=== PATIENT | female | born 1950 | race Two or more races ===

== ENCOUNTER 2023-03-24 16:21 | Inpatient (IN) | payer MEDICAID ==
[~2023-03-24] VITALS: Ht 147.3 cm; Wt 62.8 kg
[2023-03-24 04:48] VITALS: BP 139/54; PULSE 79; RESP 18; TEMP 98; O2SAT 98
[2023-03-24 18:45] LABS: Mean Corpuscular Volume 106.3 fL (80.0-100.0)
[2023-03-24 18:47] LABS: Hematocrit 13.6 % (36.0-46.0); Mean Corpuscular Hgb Conc. 34.8 g/dL (32.0-36.0); Red Blood Cells 1.28 10^6/uL (4.0-5.20); Red Cell Distribution Width 19.3 % (11.8-14.3); White Blood Cell 2.8 10^3/uL (4.4-10.8)
[2023-03-24 18:54] LABS: Hemoglobin 4.7 g/dL (12.2-16.2)
[2023-03-24 18:55] LABS: Alanine Aminotransferase 26 U/L (7-40); Alkaline Phosphatase 87 U/L (46-116); Anion Gap 13 (5-15); Aspartate Aminotransferase 18 U/L (13-40); BUN/Creatinine Ratio 26.2 (10.0-20.0); Band Neutrophils % (manual) 0; Basophils % (manual) 0 (0.0-2.0); Blood Urea Nitrogen 22 mg/dL (9-23); Calcium 9.7 mg/dL (8.5-10.1); Carbon Dioxide 22 mmol/L (20-30); Chloride 105 mmol/L (98-107); Eosinophils % (manual) 0 (0-7); Glucose 117 mg/dL (74-106); Myelocytes % 0; Promyelocytes % 0; Reactive Lymphocytes 0; Sodium 140 mmol/L (136-145)
[2023-03-24 18:56] LABS: Albumin 4.2 g/dL (3.2-4.8); Bilirubin, Total 0.7 mg/dL (0.2-1.0); Total Protein 7.4 g/dL (5.7-8.2)
[2023-03-24 19:26] LABS: Blast Cells 3; Lymphocytes % (manual) 59 (10.0-50.0); Macrocytosis Moderate; Metamyelocytes % 1; Monocytes % (manual) 3 (0-12); Platelet Estimate Decreased
[2023-03-24 19:48] LABS: INR 1.08 (0.9-1.15); Partial Thromboplastin Time 23.7 SEC (24.5-34.5); Prothrombin Time 11.3 sec (9.3-11.8)
[2023-03-24] MEDS ORDERED: ACETAMINOPHEN 325 MG TAB PO PRN (21:00)
[2023-03-24] MEDS ORDERED: ONDANSETRON HCL 4 MG/2 ML VIAL IV PRN (21:00)
[2023-03-24] MEDS ORDERED: TEMAZEPAM 15 MG CAP PO PRN (21:00)
[2023-03-25] VITALS (22 sets, daily range): BP systolic 122–160; BP diastolic 47–68; PULSE 70–88; RESP 13–20; TEMP 97.9–99.1; O2SAT 97–100
[2023-03-25] MEDS ORDERED: LOSA100T58 PO (01:49)
[2023-03-25] MEDS ORDERED: CHOL20007 OR (01:49)
[2023-03-25] MEDS ORDERED: METF-371 PO (01:49)
[2023-03-25] MEDS ORDERED: GLIP5TAB12 PO (01:49)
[2023-03-25] MEDS ORDERED: DOCU-94 PO (01:49)
[2023-03-25] MEDS ORDERED: hydrALAZINE HCL 20 MG/ML VL IV ONE (02:00)
[2023-03-25 06:19] LABS: Alanine Aminotransferase 22 U/L (7-40); Alkaline Phosphatase 80 U/L (46-116); Anion Gap 13 (5-15); Aspartate Aminotransferase 13 U/L (13-40); BUN/Creatinine Ratio 23.5 (10.0-20.0); Blood Urea Nitrogen 20 mg/dL (9-23); Calcium 9.2 mg/dL (8.7-10.4); Carbon Dioxide 19 mmol/L (20-30); Chloride 107 mmol/L (98-107); Glucose 186 mg/dL (74-106); Potassium 3.6 mmol/L (3.5-5.1); Sodium 139 mmol/L (136-145)
[2023-03-25 06:20] LABS: Albumin 3.9 g/dL (3.2-4.8); Bilirubin, Total 0.9 mg/dL (0.2-1.0); Total Protein 6.9 g/dL (5.7-8.2)
[2023-03-25] MEDS ORDERED: DEXTROSE (50%) 50ML SYRG IV PRN (06:45)
[2023-03-25] MEDS: InsuLIN REG 1unit/0.01ml Soln (100units/ml) SC SCH ×4 (07:00→22:07)
[2023-03-25] MEDS: ACCU-CHEK COMFORT CURVE STRIP VI SCH ×4 (07:02→22:07)
[2023-03-25 08:47] LABS: Hematocrit 16.3 % (36.0-46.0); Mean Corpuscular Hemoglobin 34.8 pg (28.0-32.0); Mean Corpuscular Hgb Conc. 34.4 g/dL (32.0-36.0); Mean Corpuscular Volume 101.2 fL (80.0-100.0); Red Blood Cells 1.61 10^6/uL (4.0-5.20); Red Cell Distribution Width 19.5 % (11.8-14.3); White Blood Cell 2.2 10^3/uL (4.4-10.8)
[2023-03-25 08:54] LABS: Basophils % (manual) 0 (0.0-2.0); Blast Cells 0; Hemoglobin 5.6 g/dL (12.2-16.2); Metamyelocytes % 0; Myelocytes % 0; Promyelocytes % 0
[2023-03-25 09:18] LABS: Band Neutrophils % (manual) 1; Eosinophils % (manual) 1 (0-7); Lymphocytes % (manual) 63 (10.0-50.0); Monocytes % (manual) 7 (0-12); Reactive Lymphocytes 1
[2023-03-25 09:20] LABS: Anisocytosis Slight; Macrocytosis Slight; Platelet Estimate Decreased; Tear Drop Cells FEW
[2023-03-25] MEDS: LOSARTAN POTASSIUM 50 MG TAB PO SCH (10:00)
[2023-03-25] MEDS: PANTOPRAZOLE 80 MG in SODIUM CHL 0.9% 100 ML IV ONE ×2 (13:15→14:09)
[2023-03-25] MEDS: PANTOPRAZOLE 40mg/50ML NS AE 50 ML IV SCH ×4 (14:09→23:28)
[2023-03-25] MEDS ORDERED: ALBUTEROL SULF 2.5 MG/0.5ML(0.5%) NEB SOLN NEB PRN (14:30)
[2023-03-25] MEDS ORDERED: IPRATROPIUM BROM 0.5 MG/2.5ML INH SOL NEB PRN (14:30)
[2023-03-25 15:17] LABS: Basophils # (auto) 0 10 ^3/uL (0-0.2); Eosinophils # (auto) 0 10 ^3/uL (0-0.8); Lymphocytes # (auto) 1.2 10 ^3/uL (0.4-5.4); Mean Corpuscular Hemoglobin 33.1 pg (28.0-32.0); White Blood Cell 2.2 10^3/uL (4.4-10.8)
[2023-03-25 15:21] LABS: Basophils % (auto) 0.3 % (0.0-2.0); Eosinophils % (auto) 0.8 % (0.0-7.0); Hematocrit 22.7 % (36.0-46.0); Hemoglobin 7.8 g/dL (12.2-16.2); Lymphocytes % (auto) 53.5 % (10.0-50.0); Mean Corpuscular Hgb Conc. 34.2 g/dL (32.0-36.0); Mean Corpuscular Volume 96.9 fL (80.0-100.0); Monocytes # (auto) 0.1 10 ^3/uL (0-1.3); Monocytes % (auto) 5.4 % (0.0-12.0); Neutrophils # (auto) 0.9 10 ^3/uL (1.6-8.6); Nucleated Red Blood Cells % 0.2 %; Red Blood Cells 2.34 10^6/uL (4.0-5.20); Red Cell Distribution Width 20.6 % (11.8-14.3)
[2023-03-25 15:29] LABS: Chloride 106 mmol/L (98-107); Potassium 4.3 mmol/L (3.5-5.1); Sodium 138 mmol/L (136-145)
[2023-03-25 15:30] LABS: Anion Gap 12 (5-15); Calcium 8.8 mg/dL (8.5-10.1); Carbon Dioxide 20 mmol/L (20-30)
[2023-03-25 15:35] LABS: BUN/Creatinine Ratio 27.7 (10.0-20.0); Blood Urea Nitrogen 23 mg/dL (9-23); Glucose 197 mg/dL (74-106)
[2023-03-25 22:17] LABS: Urine Bacteria FEW /hpf (None Seen); Urine Blood Negative /uL (Negative); Urine Clarity Clear (Clear); Urine Color Colorless (Yellow); Urine Protein, UAD TRACE (Negative); Urine Specific Gravity 1.012 (1.001-1.035); Urine Urobilinogen Normal (Negative); Urine WBC 1 /hpf (0 - 5)
[2023-03-26] VITALS (9 sets, daily range): BP systolic 124–160; BP diastolic 53–90; PULSE 67–83; RESP 14–22; TEMP 97.7–98.8; O2SAT 95–99
[2023-03-26 05:59] LABS: Hemoglobin 7.2 g/dL (12.2-16.2); White Blood Cell 2.4 10^3/uL (4.4-10.8)
[2023-03-26 06:03] LABS: Alanine Aminotransferase 22 U/L (7-40); Alkaline Phosphatase 63 U/L (46-116); Anion Gap 10 (5-15); BUN/Creatinine Ratio 20.3 (10.0-20.0); Blood Urea Nitrogen 16 mg/dL (9-23); Calcium 8.7 mg/dL (8.7-10.4); Carbon Dioxide 20 mmol/L (20-30); Chloride 109 mmol/L (98-107); Glucose 123 mg/dL (74-106); Hematocrit 20.6 % (36.0-46.0); Magnesium 1.6 mg/dL (1.6-2.6); Mean Corpuscular Hemoglobin 33.8 pg (28.0-32.0); Mean Corpuscular Hgb Conc. 34.9 g/dL (32.0-36.0); Mean Corpuscular Volume 96.7 fL (80.0-100.0); Potassium 3.7 mmol/L (3.5-5.1); Red Blood Cells 2.13 10^6/uL (4.0-5.20); Red Cell Distribution Width 19.7 % (11.8-14.3); Sodium 139 mmol/L (136-145)
[2023-03-26 06:04] LABS: Albumin 3.6 g/dL (3.2-4.8); Aspartate Aminotransferase 17 U/L (13-40)
[2023-03-26 06:05] LABS: Total Protein 6.4 g/dL (5.7-8.2)
[2023-03-26 06:11] LABS: Band Neutrophils % (manual) 0; Basophils % (manual) 0 (0.0-2.0); Blast Cells 0; Metamyelocytes % 0; Myelocytes % 0; Promyelocytes % 0; Reactive Lymphocytes 0
[2023-03-26] MEDS: InsuLIN REG 1unit/0.01ml Soln (100units/ml) SC SCH ×4 (06:55→22:00)
[2023-03-26] MEDS: PANTOPRAZOLE 40mg/50ML NS AE 50 ML IV SCH ×2 (06:57→09:15)
[2023-03-26] MEDS: ACCU-CHEK COMFORT CURVE STRIP VI SCH ×4 (07:01→22:21)
[2023-03-26 08:18] LABS: Anisocytosis Slight; Eosinophils % (manual) 2 (0-7); Lymphocytes % (manual) 64 (10.0-50.0); Monocytes % (manual) 7 (0-12); Platelet Estimate Decreased
[2023-03-26] MEDS ORDERED: diphenhdrAMINE HCL 50 MG/1 ML VL ONE (08:26)
[2023-03-26] MEDS ORDERED: fentaNYL CITRATE 100 MCG/2 ML VL ONE (08:26)
[2023-03-26] MEDS ORDERED: SODIUM CHLORIDE LOCK 10 ML ONE (08:28)
[2023-03-26] MEDS: LOSARTAN POTASSIUM 50 MG TAB PO SCH ×2 (10:00→15:32)
[2023-03-26] MEDS: MIDAZOLAM HCL 5 MG/ML-1ML VIAL ONE ×2 (10:50→10:54)
[2023-03-27 05:00] VITALS: BP 147/71; PULSE 81; RESP 16; TEMP 98.1; O2SAT 96
[2023-03-27] MEDS: InsuLIN REG 1unit/0.01ml Soln (100units/ml) SC SCH ×3 (06:09→17:00)
[2023-03-27] MEDS: ACCU-CHEK COMFORT CURVE STRIP VI SCH ×3 (06:10→17:00)
[2023-03-27 07:25] VITALS: O2SAT 100
[2023-03-27 08:00] VITALS: PULSE 96; RESP 18; O2SAT 100
[2023-03-27 08:35] LABS: Red Blood Cells 2.39 10^6/uL (4.0-5.20); White Blood Cell 3.3 10^3/uL (4.4-10.8)
[2023-03-27 08:37] LABS: Mean Corpuscular Hemoglobin 33.6 pg (28.0-32.0); Mean Corpuscular Hgb Conc. 34.9 g/dL (32.0-36.0); Mean Corpuscular Volume 96.2 fL (80.0-100.0); Red Cell Distribution Width 19.2 % (11.8-14.3)
[2023-03-27 08:44] LABS: Band Neutrophils % (manual) 0; Basophils % (manual) 0 (0.0-2.0); Blast Cells 0; Eosinophils % (manual) 0 (0-7); Metamyelocytes % 0; Myelocytes % 0; Promyelocytes % 0
[2023-03-27 08:49] VITALS: BP 154/84; PULSE 83; RESP 17; TEMP 98.7; O2SAT 96
[2023-03-27 09:10] LABS: Alanine Aminotransferase 22 U/L (7-40); Albumin 3.9 g/dL (3.2-4.8); Alkaline Phosphatase 63 U/L (46-116); Anion Gap 9 (5-15); Aspartate Aminotransferase 16 U/L (13-40); BUN/Creatinine Ratio 17.3 (10.0-20.0); Blood Urea Nitrogen 14 mg/dL (9-23); Calcium 8.6 mg/dL (8.7-10.4); Carbon Dioxide 21 mmol/L (20-30); Chloride 108 mmol/L (98-107); Glucose 133 mg/dL (74-106); Magnesium 1.6 mg/dL (1.6-2.6); Potassium 3.8 mmol/L (3.5-5.1); Sodium 138 mmol/L (136-145)
[2023-03-27 09:11] LABS: Bilirubin, Total 1.6 mg/dL (0.2-1.0)
[2023-03-27] MEDS: LOSARTAN POTASSIUM 50 MG TAB PO SCH (09:31)
[2023-03-27 10:37] LABS: Lymphocytes % (manual) 64 (10.0-50.0); Monocytes % (manual) 7 (0-12); Reactive Lymphocytes 4
[2023-03-27 10:38] LABS: Anisocytosis Slight; Platelet Estimate Decreased; Tear Drop Cells FEW
[2023-03-27] MEDS ORDERED: FAMO20TA10 PO (11:23)
[2023-03-27 11:47] LABS: Folate (Folic Acid) > 24.00 ng/mL (>5.38)
[2023-03-27 12:57] VITALS: BP 131/56; PULSE 76; RESP 16; TEMP 98.5; O2SAT 98
[2023-03-27 16:48] VITALS: BP 144/56; PULSE 76; RESP 16; TEMP 98.1; O2SAT 99
== END 2023-03-27 18:30 | disposition home or self-care (01) | DRG 241 ==
LOC: ER 16:21 → OVERFLOW 21:03 → TELE-WESTW 21:03 → WEST WING 03-25 03:36 → TELE-WESTW 03-25 04:59 → WEST WING 03-26 17:49
PROVIDERS: ADMIT Internal Medicine; ATTEND Internal Medicine
PROC: 0DB58ZX Excision of Esophagus, Via Natural or Artificial Opening Endoscopic, Diagnostic (ICD-10-PCS; principal; 2023-03-26 10:45)
DX: K29.71 Gastritis, unspecified, with bleeding (principal); K20.91 Esophagitis, unspecified with bleeding; K44.9 Diaphragmatic hernia without obstruction or gangrene; D46.9 Myelodysplastic syndrome, unspecified; E11.9 Type 2 diabetes mellitus without complications; D50.9 Iron deficiency anemia, unspecified; J45.909 Unspecified asthma, uncomplicated; I10 Essential (primary) hypertension; Z83.3 Family history of diabetes mellitus
CPT/HCPCS: 36415; 36430; 43235; 80048; 80053; 81001; 82270; 82607; 82746; 82962; 83036; 83605; 83735; 85007; 85025; 85027; 85610; 85730; 86850; 86900; 86901; 86920; 93005; C9113; G0378; J1815; J2250

== ENCOUNTER 2023-05-02 12:57 | Inpatient (IN) | payer MEDICAID ==
[~2023-05-02] VITALS: Ht 165.1 cm; Wt 60.0 kg
[~2023-05-02 12:57] MED LIST: CHOL20007 OR; DOCU-94 PO; FAMO20TA10 PO; GLIP5TAB12 PO; LOSA100T58 PO; METF-371 PO
[2023-05-02 13:46] LABS: Hematocrit 27.6 % (36.0-46.0); Hemoglobin 9.2 g/dL (12.2-16.2); Mean Corpuscular Hgb Conc. 33.5 g/dL (32.0-36.0); Mean Corpuscular Volume 92.4 fL (80.0-100.0); Red Blood Cells 2.98 10^6/uL (4.0-5.20); Red Cell Distribution Width 14.4 % (11.8-14.3); White Blood Cell 2.6 10^3/uL (4.4-10.8)
[2023-05-02 14:01] LABS: Alkaline Phosphatase 71 U/L (46-116); Anion Gap 13 (5-15); Aspartate Aminotransferase 13 U/L (13-40); BUN/Creatinine Ratio 24.7 (10.0-20.0); Blood Urea Nitrogen 21 mg/dL (9-23); Calcium 9.8 mg/dL (8.5-10.1); Carbon Dioxide 21 mmol/L (20-30); Chloride 98 mmol/L (98-107); Glucose 387 mg/dL (74-106); Potassium 4.1 mmol/L (3.5-5.1); Sodium 132 mmol/L (136-145)
[2023-05-02 14:02] LABS: Albumin 3.8 g/dL (3.2-4.8); Basophils % (manual) 0 (0.0-2.0); Bilirubin, Total 0.7 mg/dL (0.2-1.0); Blast Cells 0; Eosinophils % (manual) 0 (0-7); Metamyelocytes % 0; Myelocytes % 0; Promyelocytes % 0; Reactive Lymphocytes 0; Total Protein 8.6 g/dL (5.7-8.2)
[2023-05-02 14:04] LABS: Alanine Aminotransferase < 9 U/L (7-40)
[2023-05-02 14:45] LABS: Band Neutrophils % (manual) 2; Lymphocytes % (manual) 43 (10.0-50.0); Monocytes % (manual) 35 (0-12)
[2023-05-02 14:46] LABS: Platelet Estimate Decreased
[2023-05-02 16:45] VITALS: PULSE 103; RESP 20; O2SAT 95
[2023-05-02] MEDS: SODIUM CHLORIDE 0.9% 1,000 ML IV ONE ×2 (17:04→18:13)
[2023-05-02] MEDS: cefTRIAXone 1GM/50ML D5W 50 ML IV ONE (17:04)
[2023-05-02] MEDS ORDERED: ONDANSETRON HCL 4 MG/2 ML VIAL IV PRN (18:00)
[2023-05-02] MEDS: ENOXAPARIN SOD 40 MG/0.4 ML SYRINGE SC SCH (18:00)
[2023-05-02] MEDS ORDERED: MORPHINE SULFATE INJ 2 MG/ml SYRG IV PRN (18:00)
[2023-05-02] MEDS ORDERED: DEXTROSE (50%) 50ML SYRG IV PRN (18:00)
[2023-05-02] MEDS ORDERED: DOCUSATE SOD 100 MG CAP PO PRN (18:00)
[2023-05-02] MEDS: ACCU-CHEK COMFORT CURVE STRIP VI SCH (18:00)
[2023-05-02 19:28] LABS: Urine Bacteria NONE SEEN /hpf (None Seen); Urine Blood 1+ /uL (Negative); Urine Clarity Clear (Clear); Urine Color Yellow (Yellow); Urine Protein, UAD 2+ (Negative); Urine Specific Gravity 1.024 (1.001-1.035); Urine Urobilinogen Normal (Negative); Urine WBC <1 /hpf (0 - 5); Urine pH 5.5 (5.0-8.0)
[2023-05-02 20:00] VITALS: PULSE 98; RESP 22; O2SAT 95
[2023-05-02] MEDS: InsuLIN REG 1unit/0.01ml Soln (100units/ml) SC SCH (20:27)
[2023-05-02] MEDS: SODIUM CHLORIDE 0.9% 1,000 ML IV SCH (20:28)
[2023-05-03] VITALS (9 sets, daily range): BP systolic 137–179; BP diastolic 42–69; PULSE 86–98; RESP 16–22; TEMP 98–99; O2SAT 94–96
[2023-05-03 05:29] LABS: White Blood Cell 2.2 10^3/uL (4.4-10.8)
[2023-05-03] MEDS: hydrALAZINE HCL 20 MG/ML VL IV PRN (05:30)
[2023-05-03 05:31] LABS: Hematocrit 22.7 % (36.0-46.0); Hemoglobin 7.7 g/dL (12.2-16.2); Mean Corpuscular Hemoglobin 31.1 pg (28.0-32.0); Mean Corpuscular Volume 91.2 fL (80.0-100.0); Red Blood Cells 2.49 10^6/uL (4.0-5.20); Red Cell Distribution Width 14.6 % (11.8-14.3)
[2023-05-03 05:44] LABS: Alkaline Phosphatase 61 U/L (46-116); Anion Gap 9 (5-15); BUN/Creatinine Ratio 31.4 (10.0-20.0); Blood Urea Nitrogen 27 mg/dL (9-23); Calcium 9.3 mg/dL (8.5-10.1); Carbon Dioxide 23 mmol/L (20-30); Chloride 104 mmol/L (98-107); Glucose 330 mg/dL (74-106); Potassium 3.9 mmol/L (3.5-5.1); Sodium 136 mmol/L (136-145)
[2023-05-03 05:45] LABS: Alanine Aminotransferase < 9 U/L (7-40); Albumin 3.4 g/dL (3.2-4.8); Aspartate Aminotransferase < 8 U/L (13-40)
[2023-05-03 05:46] LABS: Bilirubin, Total 0.5 mg/dL (0.2-1.0)
[2023-05-03 06:14] LABS: Band Neutrophils % (manual) 0; Basophils % (manual) 0 (0.0-2.0); Eosinophils % (manual) 0 (0-7); Metamyelocytes % 0; Myelocytes % 0; Promyelocytes % 0
[2023-05-03 08:47] LABS: Blast Cells 1; Lymphocytes % (manual) 42 (10.0-50.0); Monocytes % (manual) 21 (0-12); Platelet Estimate Decreased; Reactive Lymphocytes 1
[2023-05-03] MEDS: PANTOPRAZOLE 40 MG/10 ML VIAL INJ IV SCH (09:20)
[2023-05-03] MEDS ORDERED: DEXTROSE (50%) 50ML SYRG IV PRN (20:00)
[2023-05-03] MEDS: HYDROcodone-ACET 5/325MG TAB PO PRN (20:27)
[2023-05-03] MEDS: ACCU-CHEK COMFORT CURVE STRIP VI SCH (23:25)
[2023-05-03] MEDS: InsuLIN REG 1unit/0.01ml Soln (100units/ml) SC SCH (23:33)
[2023-05-04] VITALS (7 sets, daily range): BP systolic 134–166; BP diastolic 38–65; PULSE 77–92; RESP 16–18; TEMP 97.9–98.1; O2SAT 93–99
[2023-05-04] MEDS: INSULIN LANTUS (GLARGINE) 1 /0.01ml (100units/ml) SC SCH (23:09)
[2023-05-05] VITALS (9 sets, daily range): BP systolic 133–168; BP diastolic 52–70; PULSE 84–92; RESP 16–22; TEMP 36.5; O2SAT 93–96
[2023-05-06 04:52] VITALS: BP 172/74; PULSE 76; RESP 18; TEMP 98; O2SAT 96
[2023-05-06 08:00] VITALS: BP 144/60; PULSE 87; RESP 16; TEMP 98.5; O2SAT 95
[2023-05-06 13:00] VITALS: BP 154/68; PULSE 97; RESP 16; TEMP 99; O2SAT 94
[2023-05-06 17:00] VITALS: BP 152/43; PULSE 85; RESP 16; TEMP 97.6; O2SAT 97
== END 2023-05-06 17:30 | disposition home or self-care (01) | DRG 420 ==
LOC: EDBD 12:57 → ER 12:57 → WEST WING 18:01 → OVERFLOW 18:01 → WEST WING 21:46
PROVIDERS: ADMIT Nurse Practitioner Family; ATTEND Internal Medicine
DX: E11.65 Type 2 diabetes mellitus with hyperglycemia (principal); D61.818 Other pancytopenia; K20.90 Esophagitis, unspecified without bleeding; I10 Essential (primary) hypertension; D46.9 Myelodysplastic syndrome, unspecified; J45.909 Unspecified asthma, uncomplicated; K29.50 Unspecified chronic gastritis without bleeding; M25.511 Pain in right shoulder; R51.9 Headache, unspecified; M54.2 Cervicalgia; Z66 Do not resuscitate; M25.561 Pain in right knee; R13.10 Dysphagia, unspecified; W18.39XA Other fall on same level, initial encounter; K44.9 Diaphragmatic hernia without obstruction or gangrene; Z79.899 Other long term (current) drug therapy; Y92.89 Other specified places as the place of occurrence of the external cause
CPT/HCPCS: 36415; 70450; 70551; 71045; 72125; 73030; 73562; 80053; 81001; 82010; 82962; 85007; 85027; 87040; 87081; 92610; 96361; 96365; 97110; 97163; 97530; A4565; C9113; G0378; J1815